=== PATIENT | female | born 1990 ===

== ENCOUNTER 2017-09-17 11:51 | Emergency (ER) | payer OTHER ==
[2017-09-17 12:15] VITALS: BP 138/92; PULSE 111; RESP 20; TEMP 97.9; O2SAT 100
== END 2017-09-17 12:29 | disposition home or self-care (01) | DRG 153 ==
LOC: ED 11:51
DX: H66.91 Otitis media, unspecified, right ear (principal); J06.9 Acute upper respiratory infection, unspecified
CPT/HCPCS: 99282

== ENCOUNTER 2018-01-24 08:51 | Emergency (ER) | payer OTHER ==
[2018-01-24 10:37] VITALS: PULSE 80; RESP 16; TEMP 98.5; O2SAT 99
[2018-01-24] MEDS ORDERED: ACETAMINOPHEN 500 MG 500 MG TAB PO ONE (10:49)
[2018-01-24] MEDS ORDERED: ACETAMINOPHEN 500 MG 500 MG TAB ONE ×2 (10:56→11:02)
[2018-01-24 11:15] LABS: APPEARANCE,URINE Cloudy; BILIRUBIN,URINE NEGATIVE (NEGATIVE); COLOR,URINE Amber; GLUCOSE, URINE (UA) NEGATIVE (NEGATIVE); KETONES,URINE TRACE (NEGATIVE); LEUKOCYTE ESTERASE ,URINE TRACE (NEGATIVE); NITRATE,URINE POSITIVE (NEGATIVE); OCCULT BLOOD,URINE 3+ (NEG-TRACE); UROBILINOGEN,URINE 0.2 (0.2-1.0 EU)
[2018-01-24 11:26] LABS: BACTERIA 3+ (< 1+); CRYSTALS NEGATIVE (0-3 AVE/HPF); RBC,URINE 45-502 (0-3AV/HPF)
[2018-01-24] MEDS ORDERED: CEPHALEXIN 250 MG/5 ML BOTTLE PO ONE (11:35)
[2018-01-24] MEDS ORDERED: CEPHALEXIN 250 MG/5 ML BOTTLE ONE (11:41)
== END 2018-01-24 12:05 | disposition home or self-care (01) | DRG 690 ==
LOC: ED 08:51
DX: N39.0 Urinary tract infection, site not specified (principal); M54.9 Dorsalgia, unspecified; R10.9 Unspecified abdominal pain
CPT/HCPCS: 81001; 87077; 87088; 87186; 99282; A9270-GY